=== PATIENT | male | born 1960 | race Caucasian/White ===

== ENCOUNTER → 2020-10-20 14:45 | Outpatient (CLI) | payer MEDICARE, MEDICAID, SELFPAY | PROVIDERS: PCP Family Medicine; Referring Provider Family Medicine; Visit Provider Family Medicine | DX: Z11.59 Encounter for screening for other viral diseases (principal); J20.9 Acute bronchitis, unspecified | CPT/HCPCS: 87635; C9803; U0005; U0003 ==

== ENCOUNTER 2021-07-29 18:06 | Outpatient (CLI) | payer MEDICARE, MEDICAID, SELFPAY ==
[2021-07-29] MEDS: 0.9% Saline Lock 10 ML Syringe IV (18:33)
[2021-07-29 18:38] VITALS: BP 145/82; PULSE 91; RESP 16; TEMP 37.1; O2SAT 93; BMI 29.1
[2021-07-29 19:13] VITALS: BP 149/79; PULSE 95; RESP 16; TEMP 36.8; O2SAT 95
[2021-07-29 20:12] VITALS: BP 148/87; PULSE 89; RESP 16; TEMP 36.9; O2SAT 93
== END 2021-07-29 20:12 | disposition home or self-care (01) ==
LOC: MS3OUT 18:07 → MS3 18:07
PROVIDERS: PCP Family Medicine; Visit Provider Nurse Practitioner Adult Health
DX: Z23 Encounter for immunization (principal); U07.1 COVID-19
CPT/HCPCS: J7050; M0245; Q0245; A4216